=== PATIENT | male | born 1950 | race Caucasian/White ===

== ENCOUNTER 2025-04-19 11:23 | Outpatient (AMB) | payer OTHER, SELFPAY | END 2025-04-19 12:02 | disposition home or self-care (01) | LOC: HO.HMGAL 11:23 | PROVIDERS: PCP Internal Medicine; Visit Provider Registered Nurse Emergency | DX: J30.89 Other allergic rhinitis (principal) | CPT/HCPCS: 95117; 95165 ==

== ENCOUNTER 2025-05-01 11:33 | Outpatient (AMB) | payer OTHER, SELFPAY ==
--- OUTSIDE RECORDS SUMMARY | 2025-05-01 15:51 | XMS_ITS ---
[facility] Name [facility] Organization Unknown Results Test Name/Text Value Interpretation Date Range Source ALP SerPl-cCnc 70.0 unit/L 04/03/2025 42 - 121 CT _[facility] AST SerPl-cCnc 14.0 unit/L 04/03/2025 10 - 42 CT _[facility] Creat SerPl-mCnc 1.14 mg/dL 04/03/2025 0.7 - 1.3 C T_THS[facility]AN eGFRcr SerPlBld CKD-EPI 2020 67.0 mL/min/1.73m2 04/03/2025 - CT_[facility] Albumin SerPl-mCnc 3.1 g/dL Below low normal 04/03/2025 3.2 - 5 CT_[facility] BUN SerPl-mCnc 32.0 mg/dL Above high normal 04/03/2025 5 - 2 5 [facility] Prot SerPl-mCnc 5.9 g/dL Below low normal 04/03/2025 6 - 8 [facility] Calcium SerPl-mCnc 8.5 mg/dL 04/03/2025 8.5 - 10.5 CT_[facility] Glucose SerPl-mCnc 162.0 mg/dL Above high normal 04/03/2025 70 - 100 CT_[facility] Potassium SerPl-sCnc 4.4 mmol/L 04/03/2025 3.5 - 5.5 [facility] ALT SerPl-cCnc 24.0 unit/L 04/03/2025 10 - 60 CT _[facility] Chloride SerPl-sCnc 110.0 mmol/L 04/03/2025 96 - 110 [facility] Sodium SerPl-sCnc 139.0 mmol/L 04/03/2025 133 - 14 5 CT_[facility] BUN/Creat SerPl 28.1 04/03/2025 CT_ [facility] Anion Gap SerPl Calc-sCnc 6.0 04/03/2025 3 - 11 CT_[facility] Bilirub SerPl-mCnc 0.3 mg/dL 04/03/2025 0 - 1.4 CT_[facility] CO2 SerPl-sCnc 23.0 mmol/L 04/03/2025 21 - 32 [facility] BLOOD B[facility] CMNT PATIENT-IMP Testing performed at [facility], [address] [place] [id number], Yuridia Rogel MD Glass Tube Bender, CLSC [id number] Normal 07/30/2023 [facility] ABO+RH GP BLD A POSITIVE Normal 07/30/2023 [facility] ABO+RH GP BLD A POSITIVE Normal 07/30/2023 [facility] BLOOD BANK CMNT PATIENT-IMP Testing performed at [facility], [address] [place] [address] [id number], Yuridia Rogel MD Glass Tube Bender, [facility] [id number] Normal 07/30/2023 [facility] BLD GP AB SCN SERPL QL NEGATIVE Normal 07/30/[facility] BLDC GLUCOMTR MCNC 133.0 mg/dL Normal 07/30/2023 70 - 199 [facility] RBC AUTO MCNC 33.0 g/dL Normal 07/10/2023 32 - 36 [facility] LYMPHOCYTES NO. BLD AUTO 0.7 K/uL Below low normal 07/10/2023 1 - 3.2 [facility] PLATELET NO. BLD AUTO 230.0 K/uL Normal 07/10/2023 150 - 450 [facility] IMMATURE GRANULOCYTE, ABSOLUTE 0.03 k/uL Normal 07/10/2023 - 0.1 [facility] WBC NO. BLD AUTO 8.2 K/uL Normal 07/10/2023 4 - 10.5 [facility] PMV BLD AUTO 9.8 fL Normal 07/10/2023 7.4 - 11.4 [facility] NEUTROPHILS NFR BLD AUTO 78.2 % Above high normal 07/10/2023 44 - 74 [facility] RDW RBC AUTO RTO 14.3 % Normal 07/10/2023 12.1 - 17.7 [facility] MONOCYTES NO. BLD AUTO 0.2 K/uL Normal 07/10/2023 0 - [facility].8 [facility] I[facility] GRANULOC[facility], PERCENT 0.4 % Normal 07/10/2023 0 - 1 [facility] MCV RBC AUTO 91.5 fL Normal 07/10/2023 78 - 100 [facility] HGB BLD MCNC 12.8 g/dL Below low normal 07/10/2023 13.5 - 18 [facility] LYMPHOC[facility] NFR BLD AUTO 8.8 % Below low normal 07/10/2023 20 - 48 [facility] HCT VFR BLD AUTO 38.8 % Below low normal 07/10/2023 40 - 54 [facility] MCH RBC QN AUTO 30.2 pg Normal 07/10/2023 25 - [address] [facility] NEUTROPHILS NO. BLD AUTO 6.4 K/uL Normal 07/10/2023 1.8 - 7.8 [facility] BASOPHILS IN BLOOD BY AUTOMATED COUNT 0.1 K/uL Normal 07/10/2023 0 - 0.2 [facility] EOSINOPHIL NFR BLD AUTO 9.1 % Above high normal 07/10/2023 0 - 6 [facility] EOSINOPHIL NO. BLD AUTO 0.7 K/uL Above high normal 07/10/2023 0 - 0.5 [facility] NUCLEATED RBC 0.0 % Normal 07/10/2023 0 - 1 [facility] MONOC[facility] NFR BLD AUTO 2.6 % Normal 07/10/2023 2 - 12 [facility] RBC NO. BLD AUTO 4.24 M/uL Below low normal 07/10/2023 4.7 - 6 [facility] BASOPHILS NFR BLD AUTO 0.9 % Normal 07/10/2023 0 - 2 [facility] HCO3 SER SCNC 28.0 mmol/L Normal 07/10/2023 24 - 32 [facility] BUN SERPL MCNC 20.0 mg/dL Normal 07/10/2023 9 - 20 [facility] CALCIUM SERPL MCNC 8.9 mg/dL Normal 07/10/2023 8.4 - 10.2 [facility] CHLORIDE SERPL SCNC 105.0 mmol/L Normal 07/10/2023 98 - 107 [facility] POTASSIUM SERPL SCNC 4.6 mmol/L Normal 07/10/2023 3.5 - 5.1 [facility] SODIUM SERPL SCNC 139.0 mmol/L Normal 07/10/2023 135 - 14 5 [facility] ANION GAP SERPL SCNC 6.0 mmol/L Normal 07/10/2023 5 - 14 [facility] CREAT SERPL MCNC 0.8 mg/dL Normal 07/10/2023 0.7 - 1.3 CT [facility] GLUCOSE SERPL MCNC 222.0 mg/dL Above high normal 07/10/2023 70 - 199 [facility] Glomerular filtration rate/1.73 sq M. predicted 93.0 Normal 07/10/2023 60 - [facility] INR PPP 1.0 Normal 07/10/2023 0.8 - 1.1 [facility] PT TIME PPP 12.0 sec Normal 07/10/2023 10.5 - 13.3 [facility] History of Medication Use Medication Directions Dispensed Refills Start Date End Date Stat predniSONE (DELTASONE) 2.5 mg tablet TAKE 3 TABLETS BY MOUTH EVERY 48 HOURS FOR 30 DAYS. 07/27/2024 active olmesartan (BENICAR) 40 mg tablet TAKE 1 TABLET BY MOUTH EVERY DAY 07/05/2024 active budesonide-formotero L (SYMBICORT) 160-4.5 mcg/actuation inhaler Inhale 2 puffs by mouth every 12 (twelve) hours. For 90 days; This medication has inhaler steroid: Rinse mouth with water and expectorate after each dose to prevent oral/esophageal candidiasis or fungal infection 06/09/2024 active aspirin 81 MG EC tablet Take 1 tablet (81 mg total) by mouth daily. active dilTIAZem (CARDIZEM CD) 180 MG 24 hr capsule Take 1 capsule (180 mg total) by mouth daily. active predniSONE (DELTASONE) 5 mg tablet Take 1.5 tablets (7.5 mg total) by mouth every other day. active PREDNISONE ORAL Take by mouth. 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 ProblemAct [facility] 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 ProblemAct [facility] Irregular heart rhythm active 2023-04-02 ProblemAct [facility] Impaired mobility active 2023-04-02 ProblemAct [facility] Medication monitoring encounter active EncounterDiagnosisAct [facility] Obstructive sleep apnea syndrome active 2016-12-12 ProblemAct [facility] Paraplegia active 2023-04-02 ProblemAct CTTH[facility] G Presence of Watchman left atrial appendage closure device active 2023-11-09 ProblemAct [facility] Cerebrovascular accident (CVA), unspecified mechanism (HCC) active EncounterDiagnosisAct [facility]TT [facility] Fatigue active 2021-05-16 ProblemAct [facility] Malignant neoplasm of skin active 2023-04-02 ProblemAct [facility] Impairment of balance active 2023-04-02 ProblemAct [facility] SOB (shortness of breath) active 2022-12-22 ProblemAct [facility] Extrinsic asthma active 2016-12-30 ProblemAct C T_[facility] PAF (paroxysmal atrial fibrillation) active 2021-05-16 ProblemAct CT_[facility] R[facility] Immunizations Vaccine Date Source Lot Number Status Annel (age 6mo & older) Bi valent, COVID-19, 0.5 mL or 0.25 mL dosage 05/03/2022 CT_[facility] completed Moderna SARS-CoV-2 COVID-19, mRNA, LNP-S, preservative free 03/07/2022 [facility] completed Moderna SARS-CoV-2 COVID-19, mRNA, LNP-S, preservative free 06/11/2021 CT_THS[facility]AN [id number] completed Covid-19 (Moderna 12+) 100mcg/0.5mL dosage 11/06/2020 [facility] [id number] completed Covid-19 (Moderna 12+) 100mcg/0.5mL dosage 10/09/2020 [facility] NEMG [id number] completed Encounters Encounter Type Encounter Reason Primary Diagnosis Location Date Ambulatory Unspecified atrial fibrillation Unspecified atrial fibrillation [facility] 07/[place] Ambulatory Paroxysmal atrial fibrillation Paroxysmal atrial fibrillation [facility] 07/10/2023 Care Team Organization Name Specialty Phone Email Start Date End Da te [facility] 08/1801/23/2025 [facility] 01/23/2025 [facility] 202201/21/2025 [facility] 07/10/202306/18 [facility] 023 07/10/2023 [facility] 023 04/01/2023 [facility] 023 [facility] 12/22/2022 04/04/2024 [facility] 06/24/2022 04/04/2024 [facility]
--- OUTSIDE RECORDS SUMMARY | 2025-05-01 15:51 | XMS_ITS | Clinical Summary ---
Author Organization [facility] Address [address] [place] [address] Care Team Providers Care Blueprint Engineer Name Role Phone Unavailable Primary Care Provider Unavailabl e Social History Tobacco Use Types Packs/Day Years Used Date Smoking Tobacco: Never Assessed Sex and Gender Information Value Date Recorded Sex Assigned at Not on file Legal Sex Male 5:19 PM EDT Gender Identity Not on file Sexual Orientation Not on file Plan of Treatment Health Maintenance Due Date Last Done Comments Advance Care Planning 1950 Hepatitis C Virus Screening 1950 DTaP/Tdap/Td Vaccines (1 - Tdap) 1968 Pneumococcal Vaccines 50+ (1 of 1 - PCV) 1999 Zoster (Shingles) Vaccine (1 of 2) 1999 RSV Vaccine 60 years and old er and Patients (1 - 1-dose 75+ series) 2024 COVID-19 Vaccine (2023-2 5 season) 2025 Hepatitis B Vaccines Aged Out No long er eligible based on patient's age to complete this topic
--- OUTSIDE RECORDS SUMMARY | 2025-05-01 15:51 | XMS_ITS | Clinical Summary ---
Author Organization [facility] Address [address] [place] [address] Care Team Providers Care Conference And Event Organiser Name Role Phone Ivan Mars MD Primary Care Provider Unavailab le Allergies Active Allergy Reactions Criticality Noted Date Comments Amoxicillin 07/13/2023 Ciprofloxacin Other (See Comments) 04/24/2015 Doxycycline 12/12/2016 Metronidazole 12/12/2016 Penicillins Rash Low 05/03/2017 Sulfa Antibiotics 12/12/2016 Medications Medication Sig Dispensed Refills Start Date End Date Status dilTIAZem (CARDIZEM CD) 180 MG 24 hr capsule Take 1 capsule (180 mg total) by mouth daily. 0 Active Misc. Devices (Wheelchair) MISC Tilite TR ridge tritium wheelchair 1 each 0 04/07/2023 Active Fluticasone-Umeclidi n-Vilant (TRELEGY ELLIPTA IN) Inhale 1 Inhalation into the lungs daily. 0 Active predniSONE (DELTASONE) 5 mg tablet Take 1.5 tablets (7.5 mg total) by mouth every other day. 0 Active aspirin 81 MG EC tablet Take 1 tablet (81 mg total) by mouth daily. 0 Active atorvastatin (LIPITOR) tablet 40 mg TAKE 1 TABLET BY MOUTH EVERYNIGHT AT BEDTIME 90 tablet 0 09/10/2023 Active doxazosin (CARDURA) tablet 1 mgIndications:Primar y hypertension TAKE 1 TABLET BY MOUTH EVERY DAY. 90 tablet 0 11/09/2023 Active olmesartan (BENICAR) tablet 40 mgIndications:Hypert ension, unspecified type TAKE 1 TABLET BY MOUTH EVERY DAY 30 tablet 2 02/26/2024 Active Active Problems Problem Noted Date Diagnosed Date Impaired mobility 04/02/2023 Impairment of balance 04/02/2023 Irregular heart rhythm 04/02/2023 Malignant neoplasm of skin 04/02/2023 Paraplegia 04/02/2023 SOB (shortness of breath) 12/22/2022 Fatigue 05/16/2021 Hypertension 05/16/2021 PAF (paroxysmal atrial fibrillation) 05/16/2021 Extrinsic asthma 12/30/2016 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 Obstructive sleep apnea syndrome 12/12/2016 Overview: [facility] Home Sleep Apnea Test: Date 09/06/2020; Wt 175#; BMI 34; RAMY (AHI) 10, AI 1; HI 9; Unclassified apneas 0; Obstructive apneas 10; Central apneas 1; Mixed apneas 0; hypopneas 73; average oxygen saturation 94% (lowest 83% without saturations <88% for 5% or more of study) - Obstructive Sleep Apnea - mild; mostly hypopneas and obstructive apnea; without sleep related hypoventilation by 2020 home sleep apnea test. 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 Immunizations Name Administration Dates Next Due Covid-19 (Moderna 12+) 100mcg/0.5mL dosage 11/06,10/09/2020 Covid-19 (Moderna 12+) Bivalent 50mcg/0.5mL 04/17 Covid-19 (Moderna Booster 18+) 0.25mL dosage ,06/11/2021 Family History Medical History Relation Name Comments No Sig Med Hx Daughter Yudith Cancer Father 85 Lung cancer Father 85 Dementia Mother 85 Early Mother 85 Relation Name Status Comments Daughter Yudith Alive Father 85 Mother 85 Social History Tobacco Use Types Packs/Day Years Used Date Smoking Tobacco: Never Smokeless Tobacco: Never Tobacco Cessation:Counseling Given: Not Answered Alcohol Use Standard Drinks/Week Comments Yes 0 (1 standard drink = 0.6 oz pur e alcohol) Rare beer Sex and Gender Information Value Date Recorded Sex Assigned at Male 08/19/2022 2:14 PM EST Gender Identity Male 08/19/2022 2:14 PM EST Sexual Orientation Straight 08/19/2022 2: 14 PM EST Job Start Date Occupation Industry Not on file Not on file Not on file Last Filed Vital Signs Vital Sign Reading Time Taken Comments Blood Pressure 122/54 08/25/2023 1:46 PM EST Pulse 94 08/25/2023 1:46 PM EST Temperature 36.1 C (96.9 F) 08/25/2023 1:46 PM EST Respiratory Rate 24 07/30/2023 1:45 PM EST Oxygen Saturation 98% 08/25/2023 1:46 PM EST Inhaled Oxygen Concentration - - Weight 76.7 kg (169 lb) 08/25/2023 1:46 PM EST Height 182.9 cm (6') 08/25/2023 1:46 PM EST Body Mass Index 22.92 08/25/2023 1:46 PM EST Plan of Treatment Health Maintenance Due Date Last Done Comments Hepatitis C Screening 1950 Pneumococcal Vaccine (1 of 2 - PCV) 1955 Depression Screening 1961 Preventative Health Evaluation 1967 DTap / Tdap / Td (1 - Tdap) 1968 Shingrix-Zoster Vaccine (1 of 2) 1968 Colon Cancer Screening (Colonoscopy) 1994 Fall Risk Assessment 2014 RSV Adult > 60+ Yrs or (1 - 1-dose 75+ series) 2024 COVID-19 Vaccine ( season) 2025 05/03/2022, 03/07/2022, 06/11/2021, Additional history exists Influenza Vaccine (#1) 2025 Hepatitis B Vaccines Aged Out No long er eligible based on patient's age to complete this topic RSV Ped < 20 months Aged Out No longe r eligible based on patient's age to complete this topic Medical Devices Implanted Type Area Retail Management Keyholder Device Identifier Shelf Expiration Date Model / Serial / Lot Device Clsur Watchman Flx Padma 24mm Bsci-Prnt [id number] - [id number] Implanted:Qty: 1 on 07/30/2023 by Russell Gaitan MD at [facility] Left: Heart [employer] DEVON 05/21/2025 [id number] / / [id number] Description:Implanted in lef t atrial appendage. Advance Directives For more information, please contact: [phone] Latest Code Status on File Code Status Date Activated Date Inactivated Comments Full Code 07/30/2023 9:43 AM 07/30/2023 8:55 PM Thi s code status was ascertained in the following way: discussion with patient . Care Teams Conference And Event Organiser Relationship Specialty Start Date End Date Ivan Mars MD PCP - General Family Medicine 01/25/24
--- OUTSIDE RECORDS SUMMARY | 2025-05-01 15:51 | XMS_ITS | Clinical Summary ---
Author Organization [address] [facility] Address [address] [place] [address] Phone Care Team Providers Care Telesales Advisor Name Role Phone Peter Horton MD Primary Care Provider [phone] Allergies Active Allergy Reactions Criticality Noted Date Comments Amoxicillin 07/19/2024 Ciprofloxacin Other 04/24/2015 Doxycycline 12/12/2016 Metronidazole 12/12/2016 Penicillins Rash Low 12/12/2016 Sulfa (Sulfonamide Antibiotics) 11/16 Medications PREDNISONE ORAL Take by mouth. Active dilTIAZem CD (CARDIZEM CD) 180 mg 24 hr capsule Take 1 capsule (180 mg total) by mouth 1 (one) time each day. Active atorvastatin (LIPITOR) 40 mg tablet Take 1 tablet (40 mg total) by mouth 1 (one) time each day. Active doxazosin (CARDURA) 1 mg tablet Take 1 tablet (1 mg total) by mouth 1 (one) time each day. 11/09/19 24 Active fluticasone-umec lidinium-vilante rol (Trelegy Ellipta) 200-62.5-25 mcg inhaler Inhale 1 puff (200 mcg total) by mouth 1 (one) time each day. Rinse mouth with water after use to reduce aftertaste and incidence of candidiasis. Do not swallow. 1 each 12 08/24/19 25 026 Active olmesartan (BENICAR) 40 mg tabletIndication s:Essential hypertension TAKE 1 TABLET BY MOUTH EVERY DAY 90 tablet 05/14/20 25 Active predniSONE (DELTASONE) 2.5 mg tablet TAKE 3 TABLETS BY MOUTH EVERY 48 HOURS FOR 30 DAYS. 45 tablet 5 01/31/20 25 Active budesonide-formo teroL (SYMBICORT) 160-4.5 mcg/actuation inhaler Inhale 2 puffs by mouth every 12 (twelve) hours. For 90 days; This medication has inhaler steroid: Rinse mouth with water and expectorate after each dose to prevent oral/esophageal candidiasis or fungal infection 06/09/20 24 025 Discontin ued(Thera py completed ) dilTIAZem (Tiadylt ER) 180 mg 24 hr capsule Take 1 capsule (180 mg total) by mouth 1 (one) time each day. 02/16/20 24 025 Discontin ued(Thera py completed ) aspirin 81 mg EC tablet Take 1 tablet (81 mg total) by mouth 1 (one) time each day. 025 Discontin ued(Thera py completed ) albuterol HFA (PROAIR HFA ; PROVENTIL HFA ; VENTOLIN HFA) 90 mcg/actuation inhaler Inhale 2 puffs by mouth every 4 (four) hours if needed for wheezing (coughing). 02/02/20 23 025 Discontin ued(Thera py completed ) Hospital, Clinic, or Other Facility Administered Medication Ordered Dose Route Frequency Start Date End Date Status perflutren lipid microsphere (DEFINITY) 1.3 mL in sodium chloride 0.9% 8.7 mL injectionIndications:Atrial fibrillation, unspecified type (CMS/HCC V24, CMS/HCC V28),TIA (transient ischemic attack),Cerebrovascular accident (CVA), unspecified mechanism (CMS/HCC V24, CMS/HCC V28),Presence of Watchman left atrial appendage closure device 10 mL IV Once 04/04/2025 04/04/2025 Ended Active Problems Problem Noted Date Diagnosed Date TIA (transient ischemic attack) 03/27/2025 Anemia 11/09/2023 Presence of Watchman left atrial appendage closu re device 11/09/2023 SOB (shortness of breath) 12/22/2022 Essential hypertension 05/16/2021 PAF (paroxysmal atrial fibri llation) (CMS/HCC V24, CMS/[facility] V28) 05/16/2021 Fatigue 05/16/2021 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 Encounters Date Type Department Care Team Description 04/25/2025 Telephone [facility] [address] [place] [phone] Vicky Garibay PA 04/10/2025 Telephone [facility] [address] [place] [phone] Vicky Garibay PA 04/05/2025 2:30 PM EDT Office Visit [facility] - [place] [address] [place] [phone] Antony Martinez MD Eosinophilic leukocytosis (Primary Dx); Moderate persistent extrinsic asthma without complication 04/04/2025 8:00 AM EDT Ancillary Procedure [facility] - [address] [place] [id number] Atrial fibrillation, unspecified type (CMS/[facility] V24, CMS/[facility] V28); TIA (transient ischemic attack); Cerebrovascular accident (CVA), unspecified mechanism (CMS/[facility] V24, CMS/[facility] V28); Presence of Watchman left atrial appendage closure device 04/03/2025 8:40 AM EDT Office Visit [facility] - [address] [place] [address] Vicky Garibay PA Atrial fibrillation, unspecified type (CMS/HCC V24, CMS/HCC V28) (Primary Dx); TIA (transient ischemic attack); Cerebrovascular accident (CVA), unspecified mechanism (CMS/HCC V24, CMS/HCC V28); Presence of Watchman left atrial appendage closure device; Anemia, unspecified type 04/03/2025 Telephone [facility] [address] [place] [phone] Vicky Garibay PA 03/20/2025 Telephone [facility] [address] [place] [address] Adwoa Moreno MD from Last 3 Months Immunizations Name Administration Dates Next Due Moderna (age 6mo & older) Bi valent, COVID-19, 0.5 mL or 0.25 mL dosage 05/03/2022 Moderna SARS-CoV-2 COVID-19, mRNA, LNP-S, preservative free 03/07/2022,06/11/2021 Surgical History Surgery Date Site/Laterality Comments OTHER SURGICAL HISTORY PROCEDURE: ND UNLISTED PROCEDURE SPINE Medical History Medical History Date Comments 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 DX:Eos inophilic leukocytosis Extrinsic asthma 12/30/2016 DX:Extrinsic as thma Obstructive sleep apnea syndrome 12/12/2016 DX:Obstructive sleep apnea syndrome 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 D X:Paraplegic immobility syndrome Lipoma DX:Lipoma; COMME NT: lipoma on back Hypertension Hyperlipidemia Chronic GERD Numbness Social History Tobacco Use Types Packs/Day Years Used Date Smoking Tobacco: Never Passive Smoke Exposure: Past Smokeless Tobacco: Never Tobacco Cessation:Counseling Given: Not Answered Alcohol Use Standard Drinks/Week Comments Not Currently 0 (1 standard drink = 0.6 oz pur e alcohol) rarely Sex and Gender Information Value Date Recorded Sex Assigned at Not on file Legal Sex Male 7:44 PM EDT Gender Identity Not on file Sexual Orientation Not on file Obstetrics History Last Filed Vital Signs Vital Sign Reading Time Taken Comments Blood Pressure 92/48 04/05/2025 2:37 PM EDT Pulse 92 04/05/2025 2:37 PM EDT Temperature 36.2 C (97.2 F) 04/05/2025 2:37 PM EDT Respiratory Rate 20 04/05/2025 2:37 PM EDT Oxygen Saturation 98% 04/05/2025 2:37 PM EDT Inhaled Oxygen Concentration - - Weight 72.6 kg (160 lb) 04/04/2025 9:02 AM EDT Height 182.9 cm (6') 04/04/2025 9:02 AM EDT Body Mass Index 21.7 04/04/2025 9:02 AM EDT Plan of Treatment Upcoming Encounters Date Type Department Care Team (Late st Contact Info) Description 07/05/2025 3:30 PM EST Office Visit [facility] - [facility] [address] [facility] [address] [place] [address] Adwoa Moreno MD [address] [place] [address] [address] [place] [address] 10/11/2025 1:15 PM EST Office Visit [facility] - [place] [address] [facility] [address] [place] [phone] Antony Martinez MD [address] [facility] [address] [place] [address] Health Maintenance Due Date Last Done Comments Diabetes: Annual Foot Exam 1959 Diabetes: Annual Retina Eye Exam 1960 DTaP,Tdap,and Td Vaccines (1 - Tdap) 1968 Colorectal Cancer Screening: Colonoscopy 01/31/2022 Falls Risk Assessment 01/31/2022 Hepatitis C Screening 01/31/2022 Medicare Annual Wellness Visit 01/31/2022 Social Influencers of Health Screening 01/31/2022 Depression Screening 08/17/2024 Diabetes: Annual Urine Albumin-Creatinine Ratio (uACR) 04/03/2025 Diabetes: Blood Sugar Control Test (HGBA1C) 04/03/2025 COVID-19 Vaccine ( season) 2025 05/04/2024, 05/07/2023, 06/02/2022, Additional history exists Influenza Vaccine (#1) 2025 , 09/16/2023, 06/29/2023, Additional history exists Diabetes: Annual GFR (Glomerular Filtration Rate) 04/03/2026 04/03/2025, 07/10/2023, 07/10/2023, Additional history exists Hypertension/CHF/CAD Annual BMP Blood Test 04/03/2026 04/03/2025, 07/10/2023, 07/10/2023, Additional history exists Cholesterol Screening (Lipid Panel) 04/03/2030 04/03/2025 Zoster Vaccines Completed 05/13/2021, 02/09/2021 RSV Immunization Adult Patients Completed 05/07/2023 Pneumococcal Vaccine: 50+ Years Completed 09/16/2023 HIB Vaccines Aged Out No longer eligi ble based on patient's age to complete this topic HPV Vaccines Aged Out No longer eligi ble based on patient's age to complete this topic Hepatitis A Vaccines Aged Out No long er eligible based on patient's age to complete this topic Hepatitis B Vaccines Aged Out No long er eligible based on patient's age to complete this topic IPV Vaccines Aged Out No longer eligi ble based on patient's age to complete this topic MMR Vaccines Aged Out No longer eligi ble based on patient's age to complete this topic Meningococcal ACWY Vaccine Aged Out N o longer eligible based on patient's age to complete this topic Meningococcal B Vaccine Aged Out No l onger eligible based on patient's age to complete this topic RSV Immunization Patients Under 20 months Aged Out No longer eligible based on patient's age to complete this topic Varicella Vaccines Aged Out No longer eligible based on patient's age to complete this topic Medical Devices Implanted Type Area Clinical Informatics Director Device Identifier Shelf Expiration Date Model / Serial / Lot Device Clsur Watchman Flx Padma 24mm Bsci-Prnt [id number] Implanted:Qty: 1 on 07/30/2023 by Dania Gaitan MD Left: [employer] 05/21/2025 [id number] Description:Implanted in lef t atrial appendage. Procedures Procedure Name Priority Date/Time Associated Diagnosis Comments TRANSTHORACIC ECHOCARDIOGRAM (TTE) COMPLETE W/ CONTRAST & BUBBLE STUDY Routine 04/04/2025 9:02 AM EDT Atrial fibrillation, unspecified type (CMS/HCC V24, CMS/HCC V28) TIA (transient ischemic attack) Cerebrovascular accident (CVA), unspecified mechanism (CMS/HCC V24, CMS/HCC V28) Presence of Watchman left atrial appendage closure device LIPID PANEL WITH REFLEX TO DIRECT LDL Routine 04/03/2025 9:53 AM EDT Atrial fibrillation, unspecified type (CMS/HCC V24, CMS/HCC V28) TIA (transient ischemic attack) Cerebrovascular accident (CVA), unspecified mechanism (CMS/HCC V24, CMS/HCC V28) Presence of Watchman left atrial appendage closure device Anemia, unspecified type Essential hypertension COMPREHENSIVE METABOLIC PANEL Routine 04/03/2025 9:53 AM EDT Essential hypertension COMPLETE BLOOD COUNT STAT 04/03/2025 9:53 AM EDT Atrial fibrillation, unspecified type (CMS/HCC V24, CMS/HCC V28) TIA (transient ischemic attack) Cerebrovascular accident (CVA), unspecified mechanism (CMS/HCC V24, CMS/HCC V28) Presence of Watchman left atrial appendage closure device Anemia, unspecified type ECG 12-LEAD Routine 04/03/2025 9:41 AM EDT Atrial fibrillation, unspecified type (CMS/HCC V24, CMS/HCC V28) EXTERNAL ECHO Routine 03/16/2025 7:47 AM EDT from Last 3 Months Results * (ABNORMAL) TRANSTHORACIC ECHOCARDIOGRAM (TTE) COMPLETE W/ CONTRAST & BUBBLE STUDY (04/04/2025 9:02 AM EDT) Left Atrium Minor [place] 5.5 cm CV PACS Left Atrium Major [place] 6.7 cm CV PACS LA Area Sys (A2C) 21 cm2 CV PACS LA Area Sys (A4C) 24 cm2 CV PACS LA Volume (BP) 72 mL CV PACS RA Area 22.9 cm2 CV PACS RA 2D Volume 67 mL CV PACS AV Mean Gradient 2 mmHg CV PACS Ao VTI 18.8 cm CV PACS AV Peak Chase 1.1 m/s CV PACS AV Peak Gradient 5 mmHg CV PACS AV Area Continuity Equation 2.1 cm2 CV PACS AV Area Peak Velocity 2.4 cm2 CV PACS Aortic Sinus Valsalva 3.7 cm CV PACS Ascending Aorta 3.3 cm CV PACS IVSD 0.9 0.6 - 1.0 cm CV PACS LVIDD 4.5 4.2 - 5.8 cm CV PACS LVIDS 2.8 2.5 - 4.0 cm CV PACS LVOT Diameter 2.0 cm CV PACS LVOT Mean Chase 0.5 m/s CV PACS LVOT Mean Grad 1 mmHg CV PACS LVOT Peak VTI 12.8 cm CV PACS LVOT Peak Chase 0.8 m/s CV PACS LVOT Peak Gradient 3 mmHg CV PACS LVPWD 0.9 0.6 - 1.0 cm CV PACS MV E' Tissue Velocity Lateral 7 cm/s CV PACS MV E' Tissue Velocity Septal 9 cm/s CV PACS LVOT Area 3.1 cm2 CV PACS LVOT Stroke Volume 40 mL CV PACS MV Deceleration [place] 5.0 m/s2 CV PACS E Wave Deceleration Time 202 119 - 242 ms CV PACS MV PHT 59 ms CV PACS MV Peak A Chase 0.68 m/s CV PACS MV Peak E Chase 1.02 m/s CV PACS MV Area PHT 3.7 cm2 CV PACS PV Acceleration Time 95 ms CV PACS PV Acceleration Time 95 ms CV PACS RV Diastolic Basal Dimension 4.3(A) 2.5 - 4.1 cm CV PACS RV S' 12 cm/s CV PACS TAPSE 23 mm CV PACS TR Peak Velocity 1.82 m/s CV PACS TR Peak Gradient 13 mmHg CV PACS E/E' Ratio Septal 11 CV PACS E/E' Ratio Averaged 13 CV PACS Relative Wall Thickness ratio 0.40 CV PACS LVOT:AV VTI Index 0.68 CV PACS FS 38 % CV PACS LV Mass 2D 133 g CV PACS LVOT flow 157 mL/s CV PACS AV Velocity Ratio 0.73 CV PACS E/A Ratio 1.5 CV PACS E/E' Ratio Lateral 15 CV PACS BSA 1.92 m2 CV PACS LA Volume Index (BP) 37 mL/m2 CV PACS LVIDD Index 2.32 cm/m2 CV PACS LVIDS Index 1.44 cm/m2 CV PACS LV Mass Index 2D 68 50 - 102 g/m2 CV PACS LVOT Stroke Index 21 mL/m2 CV PACS RA 2D Volume Index 35(A) 18 - 32 mL/m2 CV PACS LIZBETH Index (VTI) 1.10 cm2/m2 CV PACS LIZBETH Index (Pk Chase) 1.24 cm2/m2 CV PACS Ascending Aorta Index 1.70 cm/m2 CV PACS Anatomical Region Laterality Modality Ultrasound Narrative 04/10/2025 12:26 PM EDT Left ventricle cavity size is normal. Left ventricular systolic function is in the normal range with an ejection fraction of 60-65%. No regional LV wall motion abnormalities noted. Left ventricle wall thickness is normal. Right ventricle cavity is mildly enlarged. Right ventricular systolic function is normal. The atria are mildly enlarged. No hemodynamically significant valve disease. See remainder of the report for additional findings. Left Ventricle Left ventricle cavity size is normal. Wall thickness is normal. Systolic function is normal with an ejection fraction of 60-65%. There are no regional LV wall motion abnormalities. Indeterminate diastolic function. Right Ventricle Right ventricle cavity is mildly dilated. Systolic function is normal. Left Atrium Left atrium cavity is mildly dilated. Saline contrast study is negative with and without provocation. Right Atrium Right atrium cavity is mildly dilated. IVC/SVC Inferior vena cava was not well visualized. Mitral Valve Mitral valve opens normally. There is trace regurgitation. There is no evidence of mitral valve stenosis. Tricuspid Valve Tricuspid valve structure is normal. There is trace regurgitation. There is no evidence of tricuspid valve stenosis. Aortic Valve The aortic valve is trileaflet. There is no regurgitation or stenosis. Pulmonic Valve Pulmonic valve structure is normal. There is no regurgitation or stenosis. Ascending Aorta The aorta appears normal in size. Transverse aorta not well visualized. Pericardium There is an anterior fat pad. There is no pericardial effusion. Study Details Overall the study quality was suboptimal. Definity contrast was given to enhance imaging and Saline (bubble) study was completed to enhance imaging. us Vicky FUENTES CV ECHO PROCEDURES Final Result * Lipid panel with reflex to direct LDL (04/03/2025 9:53 AM EDT) [facility] Cholesterol 128 0 - 200 mg/dL LAB CHEMISTRY METHOD 04/03/2025 11:58 AM EDT [facility] Triglycerides 73 0 - 150 mg/dL LAB CHEMISTRY METHOD [facility] HDL 79 >=40 mg/dL LAB CHEMISTRY METHOD 04/03/2025 11:[facility] LDL Calculated 34 0 - 100 mg/dL LAB CHEMISTRY METHOD 04/03/2025 11:58 AM EDT [facility] Comment:Estimated LDL Calcul ated using equation: Total cholesterol - HDL cholesterol - (Triglycerides/5) VLDL Cholesterol Christopher 14.6 mg/dL LAB CHEMISTRY METHOD 04/03/2025 11:58 AM [facility] Non HDL Chol. (LDL+VLDL) 49 <145 mg/dL LAB CHEMISTRY METHOD 04/03/2025 11:58 AM [facility] Chol/HDL Ratio 1.6 0.0 - 4.4 LAB CHEMISTRY METHOD 04/03/2025 11:58 AM [facility] Blood Venous blood specimen / Unknown Venipuncture / Unknown 04/03/2025 9:53 AM EDT 04/03/2025 10:11 AM EDT Patito Alva NP LAB BLOOD ORDERABLES Final Result [facility] [address] [place] [address], [place] [phone] * (ABNORMAL) Complete blood count (04/03/2025 9:53 AM EDT) [facility] WBC 8.8 4.8 - 10.8 K/mcL LAB HEMETOLOGY METHOD 04/03/2025 10:40 AM EDT [facility] RBC 2.70(L) 4.50 - 5.50 M/mcL LAB HEMETOLOGY METHOD 04/03/2025 10:40 AM [facility] Hemoglobin 7.4(L) 13.5 - 17.5 g/dL LAB HEMETOLOGY METHOD 04/03/2025 10:40 AM [facility] Hematocrit 23.2(L) 42.0 - 54.0 % LAB HEMETOLOGY METHOD 04/03/2025 10:40 AM [facility] MCV 86.6 79.0 - 98.0 FL LAB HEMETOLOGY METHOD 04/03/2025 10:40 AM [facility] MCH 27.6 27.0 - 32.0 pcg LAB HEMETOLOGY METHOD 04/03/2025 10:40 AM [facility] MCHC 31.9(L) 32.0 - 37.0 g/dL LAB HEMETOLOGY METHOD 04/03/2025 10:40 AM [facility] RDW 16.1(H) 11.0 - 15.0 % LAB HEMETOLOGY METHOD 04/03/2025 10:40 AM [facility] Platelets 356 130 - 400 K/mcL LAB HEMETOLOGY METHOD 04/03/2025 10:40 AM [facility] MPV 10.0 7.0 - 11.0 FL LAB HEMETOLOGY METHOD 04/03/2025 10:40 AM [facility] NRBC 0.0 <1.0 % LAB HEMETOLOGY METHOD 04/03/2025 10:40 AM [facility] NRBC Absolute 0.00 <0.10 K/mcL LAB HEMETOLOGY METHOD 04/03/2025 10:40 AM [facility] Blood Venous blood specimen / Unknown Venipuncture / Unknown 04/03/2025 9:53 AM EDT 04/03/2025 10:11 AM EDT Vicky FUENTES LAB BLOOD ORDERABLES Final Resul t [facility] [address] [place] [address], * (ABNORMAL) Comprehensive metabolic panel (04/03/2025 9:53 AM EDT) Sodium 139 133 - 145 mmol/L LAB CHEMISTRY METHOD 04/03/2025 11:10 AM [facility] Potassium 4.4 3.5 - 5.5 mmol/L LAB CHEMISTRY METHOD 04/03/2025 11:10 AM [facility] Chloride 110 96 - 110 mmol/L LAB CHEMISTRY METHOD 04/03/2025 11:10 AM [facility] CO2 23 21 - 32 mmol/L LAB CHEMISTRY METHOD 04/03/2025 11:10 AM [facility] Anion Gap 6 3 - 11 LAB CHEMISTRY METHOD 04/03/2025 11:10 AM [facility] Glucose 162(H) 70 - 100 mg/dL LAB CHEMISTRY METHOD 04/03/2025 11:10 AM [facility] BUN 32(H) 5 - 25 mg/dL LAB CHEMISTRY METHOD 04/03/2025 11:10 AM [facility] Creatinine 1.14 0.70 - 1.30 mg/dL LAB CHEMISTRY METHOD 04/03/2025 11:10 AM [facility] eGFR 67 >=60 mL/min/1. 73m2 LAB CHEMISTRY METHOD 04/03/2025 11:10 AM [facility] Comment:Calculation based on the Chronic Kidney Disease Epidemiology Collaboration (CKD-EPI) equation refit without adjustment for race. BUN/Creatinine Ratio 28.1 LAB CHEMISTRY METHOD 04/03/2025 11:10 AM [facility] Calcium 8.5 8.5 - 10.5 mg/dL LAB CHEMISTRY METHOD 04/03/2025 11:10 AM [facility] AST (SGOT) 14 10 - 42 unit/L LAB CHEMISTRY METHOD 04/03/2025 11:10 AM [facility] ALT (SGPT) 24 10 - 60 unit/L LAB CHEMISTRY METHOD 04/03/2025 11:10 AM [facility] Alkaline Phosphatase 70 42 - 121 unit/L LAB CHEMISTRY METHOD 04/03/2025 11:10 AM [facility] Total Protein 5.9(L) 6.0 - 8.0 g/dL LAB CHEMISTRY METHOD 04/03/2025 11:10 AM [facility] Albumin 3.1(L) 3.2 - 5.0 g/dL LAB CHEMISTRY METHOD 04/03/2025 11:10 AM [facility] Total Bilirubin 0.3 0.0 - 1.4 mg/dL LAB CHEMISTRY METHOD 04/03/2025 11:10 AM [facility] Blood Venous blood specimen / Unknown Venipuncture / Unknown 04/03/2025 9:53 AM EDT 04/03/2025 10:12 AM EDT us Patito Alva NP LAB BLOOD ORDERABLES Final Result [facility] [address] [place] [address], * ECG 12 lead (04/03/2025 9:41 AM EDT) Ventricular Rate ECG 100 BPM GEMUSE Atrial Rate 100 BPM GEMUSE P-R Interval 144 ms GEMUSE QRS Duration 80 ms GEMUSE Q-T Interval 332 ms GEMUSE QTc 428 ms GEMUSE P Wave [place] 75 degrees GEMUSE R [place] 67 degrees GEMUSE T [place] 41 degrees GEMUSE ECG Interpretation Normal sinus rhythm with premature atrial complexes When compared with ECG of 24-MAR-2024 12:54, Vent. rate has increased BY 36 BPM Confirmed by BLANCA MORENO ([id number]) on 04/05/2025 5:42:21 PM GEMUSE 04/03/2025 8:51 AM EDT 04/05/2025 5:42 PM EDT us Vicky FUENTES ECG ORDERABLES Edited Result - Final GEMUSE * External Echo (03/16/2025 7:47 AM EDT) Anatomical Region Laterality Modality Ultrasound us Historical Provider CV ECHO PROCEDURES Final Result from Last [address] [place] [phone] [employer] Care Teams Telesales Advisor Relationship Specialty Start Date End Date Peter Horton MD [address] [place] [address] [place] [address] PCP - General Family Medicine 12/29/24
== END 2025-05-01 11:41 | disposition home or self-care (01) ==
LOC: HO.HMGAL 11:33
PROVIDERS: PCP Internal Medicine; Visit Provider Registered Nurse Emergency
DX: J30.89 Other allergic rhinitis (principal)
CPT/HCPCS: 95117; 95165